=== PATIENT | female | born 1960 | race American Indian/Alaskan Native ===

== ENCOUNTER 2017-09-03 09:00 | Day surgery (SDC) | payer OTHER ==
[2016-04-07 10:56] VITALS: BMI 32.7
[2017-09-03] MEDS ORDERED: Lidocaine Hydrochloride 5 ML INJ ONE (10:39)
[2017-09-03] MEDS ORDERED: Propofol 10 mg/ml Inj (20 ML) ONE ×2 (10:39)
[2017-09-03 12:19] VITALS: TEMP 97
[2017-09-03 12:21] VITALS: PULSE 65
[2017-09-03 12:27] VITALS: BP 121/75; RESP 19; O2SAT 99
== END 2017-09-03 12:25 | disposition home or self-care (01) ==
LOC: C.ENDO 09:00
PROVIDERS: ATTEND Internal Medicine
DX: K51.90 Ulcerative colitis, unspecified, without complications (principal); K63.5 Polyp of colon; K57.30 Diverticulosis of large intestine without perforation or abscess without bleeding; K64.8 Other hemorrhoids; D12.8 Benign neoplasm of rectum
CPT/HCPCS: 45380; 88305; J2704

== ENCOUNTER 2018-06-05 16:08 | Emergency (ER) | payer OTHER ==
[2018-06-05 16:09] VITALS: BMI 32.7
[2018-06-05 16:35] VITALS: BP 130/93; PULSE 82; RESP 18; TEMP 97.9; O2SAT 98
[2018-06-05] MEDS ORDERED: Lidocaine 5% Patch TD STA (16:53)
--- NOTE | 2018-06-05 17:00 | C.PDOC ---
History Of Present Illness 57 y/o female presents complaining of right knee and foot pain s/p fall in [facility] yesterday. She states she fell forward on injured her knee and foot. She felt moderate pain afterwards but didn't seek immediate attention. She rested at home and placed ice on the injuries with some relief. She woke up today with increase pain and difficulty bearing weight on the foot. She rates the pain 5/10. She saw Dr. Lin, her PCP, who was concerned about a possible fracture. She denies any fever, chills, chest pain, paresthesia, headache, dizziness, and N/V. Time Seen by Provider: 06/05/18 16:50 Chief Complaint (Nursing): Lower Extremity Problem/Injury History Per: Patient Onset/Duration Of Symptoms: Persistent Current Symptoms Are (Timing): Still Present Severity: Moderate Pain Scale Rating Of: 5 Recent travel outside of the [place]: No - Knee Description Of Injury: Fell Alleviating Factor(s): Ice Therapy, Elevation - Ankle/Foot Description Of Injury: Fell Currently Unable To: Bear Weight Alleviating Factor(s): Ice Therapy, Elevation Past Medical History Reviewed: Historical Data, Nursing Documentation, Vital Signs Vital Signs: Last Vital Signs Temp 97.9 F 06/05/18 16:32 Pulse 82 06/05/18 16:32 Resp 18 06/05/18 16:32 BP 130/93 H 06/05/18 16:32 Pulse Ox 98 06/05/18 16:32 - Medical History PMH: HTN, Sleep Apnea Denies: Chronic Kidney Disease Surgical History: Endoscopy Denies: Pacemaker - [facility] Procedures APPLICATION OF SPLINT (01/20/02) CLOSED ENDOSCOPIC BIOPSY OF LARGE INTESTINE (04/01/12) ENDO RECTUM POLYPECTOMY (11/03/05) ESOPHAGOGASTRODUODENOSCOPY [EGD] W/CLOSED BIOPSY (04/01/12) TETANUS TOXOID ADMINIST (10/08/12) Family History: States: CAD, Hypertension - Social History Hx Alcohol Use: Yes (SOCIAL) Hx Substance Use: No - Immunization History Hx Tetanus Toxoid Vaccination: No Hx Influenza Vaccination: No Hx Pneumococcal Vaccination: No Review Of Systems Constitutional: Negative for: Fever, Chills Cardiovascular: Negative for: Chest Pain Respiratory: Negative for: Cough, Shortness of Breath Gastrointestinal: Negative for: Nausea, Vomiting Musculoskeletal: Positive for: Foot Pain, Other (knee pain). Negative for: Back Pain Skin: Positive for: Other (abrasion to right knee) Neurological: Negative for: Weakness, Headache, Dizziness Physical Exam - Physical Exam Appears: Well, Non-toxic, No Acute Distress Skin: Normal Color, Warm, Dry Head: Atraumatic, Normacephalic Neck: Normal ROM, Supple Chest: Symmetrical, No Tenderness Cardiovascular: Rhythm Regular Respiratory: Normal Breath Sounds, No Accessory Muscle Use Gastrointestinal/Abdominal: Bowel Sounds, Soft, Tenderness Back: No CVA Tenderness Extremity: Capillary Refill (less than 2 seconds), Swelling (mild between great toe and 2nd toe), Other (full ROM but pain with ambulation ) Extremity: Right: Painful To Bear Weight (right foot) Pulses: Right Dorsalis Pedis: Normal Neurological/Psych: Oriented x3, Normal Speech, Normal Cognition, Normal Sensation ED Course And Treatment O2 Sat by Pulse Oximetry: 98 - Other Rad right foot xray X-Ray: Viewed By Me, Read By Radiologist Interpretation: Accession No. : [id number]. Patient Name / ID : MARTINEZ MARTIN / [id number]. Exam Date : 06/05/2018 17:06:36 ( Approved ). Study Comment : Sex / Age : F / 57Y. Creator : Robbin Anderson MD. Dictator : Robbin Anderson MD. Safety Leader : Equipment Records Supervisor : Robbin Anderson MD. Approver2 : Report Date : 06/05/2018 17:30:00. My Comment : . Date of service: 06/05/2018. PROCEDURE: Right Foot Radiographs. HISTORY: s/p fall. COMPARISON: None. FINDINGS: BONES: Hallux valgus deformity. No acute fracture. Inferior plantar calcaneal spur. Achilles enthesopathy. JOINTS: Normal. SOFT TISSUES: Normal. OTHER FINDINGS: None. IMPRESSION: No demonstrated fracture or dislocation. right knee xray X-Ray: Viewed By Me, Read By Radiologist Interpretation: Accession No. : [id number]. Patient Name / ID : MARTINEZ MARTIN / [id number]. Exam Date : 06/05/2018 17:06:56 ( Approved ). Study Comment : Sex / Age : F / 57Y. Creator : Robbin Anderson MD. Dictator : Robbin Anderson MD. Safety Leader : Equipment Records Supervisor : Robbin Anderson MD. Approver2 : Report Date : 06/05/2018 17:30:52. My Comment : . Date of service: 06/05/2018. PROCEDURE: Right Knee Radiographs. HISTORY: s/p fall. COMPARISON: None. FINDINGS: BONES: No acute fracture. JOINTS: Mild tricompartmental narrowing with trace degenerative spurring. JOINT EFFUSION: None. OTHER FINDINGS: None. IMPRESSION: No demonstrated fracture or dislocation. Progress Note: Patient assessed and preferred to hold off on any pain meds; ice pack applied to foot; right foot and knee xray ordered and awaiting results @ 5:12pm; X-rays reviewed and discussed with patient at 5:40pm. No evidence of fracture. Foot was wrapped with sergei bandage and advised to apply ice, rest, and keep elevated. Supposrtive shoe given. Lidoderm patches prescribed. Patient is ready for discharge at 5:50pm. Patient can follow up with Dr. Lin. Reassessment Condition: Improved Disposition Counseled Patient/Family Regarding: Studies Performed, Diagnosis, Need For Followup, Rx Given - Disposition Referrals: Jarrod Lin MD [Staff Provider] - Francis Bunch DPM [Staff Provider] - Disposition: HOME/ ROUTINE Disposition Time: 17:46 Condition: IMPROVED Additional Instructions: MARIO Jerica MARTINEZ, thank you for letting us take care of you today. Your provider was ED Physician and you were treated for RT FOOT/KNEE PAIN. The emergency medical care you received today was directed at your acute symptoms. If you were prescribed any medication, please fill it and take as directed. It may take several days for your symptoms to resolve. Return to the Emergency Department if your symptoms worsen, do not improve, or if you have any other problems. Please contact your doctor or call one of the physicians/clinics you have been referred to that are listed on the Patient Visit Information form that is included in your discharge packet. Bring any paperwork you were given at discharge with you along with any medications you are taking to your follow up visit. Our treatment cannot replace ongoing medical care by a primary care provider outside of the emergency department. Thank you for allowing the [facility] team to be part of your care today. Prescriptions: Lidocaine 5% [Lidoderm] 1 ea TD BID PRN #30 patch PRN Reason: Pain, Mild (1-3) Instructions: Foot Sprain (DC) Forms: [employer] (Slovenian), Work Excuse - Clinical Impression Clinical Impression: Contusion of knee, right, Foot injury - PA / [employer] / Resident Statement MD/DO has reviewed & agrees with the documentation as recorded.
[2018-06-05] MEDS ORDERED: Lidocaine 5% Patch TD ONE (17:06)
[2018-06-05] MEDS ORDERED: Bacitracin 500 Units/gm Oint Foilpak UD ONE (17:27)
--- NOTE | 2018-06-05 17:33 | RAD ---
Date of service: 06/05/2018 PROCEDURE: Right Foot Radiographs. HISTORY: s/p fall COMPARISON: None. FINDINGS: BONES: Hallux valgus deformity. No acute fracture. Inferior plantar calcaneal spur. Achilles enthesopathy. JOINTS: Normal. SOFT TISSUES: Normal. OTHER FINDINGS: None. IMPRESSION: No demonstrated fracture or dislocation.
--- NOTE | 2018-06-05 17:34 | RAD ---
Date of service: 06/05/2018 PROCEDURE: Right Knee Radiographs. HISTORY: s/p fall COMPARISON: None. FINDINGS: BONES: No acute fracture. JOINTS: Mild tricompartmental narrowing with trace degenerative spurring. JOINT EFFUSION: None. OTHER FINDINGS: None. IMPRESSION: No demonstrated fracture or dislocation.
== END 2018-06-05 17:53 | disposition home or self-care (01) ==
LOC: C.ER 16:08
DX: S80.01XA Contusion of right knee, initial encounter (principal); S99.921A Unspecified injury of right foot, initial encounter; W18.30XA Fall on same level, unspecified, initial encounter